=== PATIENT | female | born 2000 | race Caucasian/White ===

== ENCOUNTER 2018-05-22 09:21 | Emergency (ER) | payer OTHER ==
[2018-05-22] MEDS ORDERED: NS 1,000 ML IV (09:45)
[2018-05-22 10:13] LABS: BASO % 0.5 % (0.0-1.0); EOS % 0.4 % (0.0-3.0); HEMATOCRIT 38.5 % (36.0-47.0); HEMOGLOBIN 13.1 g/dl (12.0-15.5); LYMPH % 11.9 % (24.0-44.0); MEAN CORPUSCULAR HEMOGLOBIN 29.7 pg (27.0-33.0); MEAN CORPUSCULAR VOLUME 87.3 fl (80.0-96.0); MONO # 0.4 10^3/uL (0.0-0.8); MONO % 5.3 % (0.0-5.0); NEUTROPHILS # 6.7 10^3/uL (1.8-7.7); NEUTROPHILS % 80.9 % (36.0-66.0); PLATELET COUNT, AUTOMATED 236 10^3/uL (150-450); RED BLOOD COUNT 4.41 10^6/uL (4.00-5.40); RED CELL DISTRIBUTION WIDTH 13.6 % (11.5-14.5); WHITE BLOOD COUNT 8.3 10^3/uL (4.0-10.0)
[2018-05-22 10:24] LABS: INR 0.92; PROTHROMBIN TIME 12.5 SECONDS (12.1-14.4)
[2018-05-22 10:30] LABS: ALBUMIN 3.4 GM/DL (3.2-5.2); ALBUMIN/GLOBULIN RATIO 0.85 (1.00-1.93); ALKALINE PHOSPHATASE 43 U/L (45-117); ALT/SGPT 20 U/L (12-78); AMYLASE 67 U/L (25-115); ANION GAP 9 MEQ/L (8-16); AST/SGOT 15 U/L (7-37); BILIRUBIN,DIRECT 0.2 MG/DL (0.0-0.2); BILIRUBIN,TOTAL 0.7 MG/DL (0.2-1.0); BLOOD UREA NITROGEN 9 MG/DL (7-18); CALCIUM LEVEL 8.8 MG/DL (8.5-10.1); CARBON DIOXIDE LEVEL 22 MEQ/L (21-32); CHLORIDE LEVEL 108 MEQ/L (98-107); CREATININE FOR GFR 0.57 MG/DL (0.55-1.30); GLUCOSE, FASTING 81 MG/DL (70-100); LIPASE 121 U/L (73-393); POTASSIUM SERUM 3.6 MEQ/L (3.5-5.1); SODIUM LEVEL 139 MEQ/L (136-145); TOTAL PROTEIN 7.4 GM/DL (6.4-8.2)
== END 2018-05-22 13:17 | disposition home or self-care (01) ==
LOC: M ED 09:21
DX: O9A.212 Injury, poisoning and certain other consequences of external causes complicating pregnancy, second trimester (principal); S80.02XA Contusion of left knee, initial encounter; S30.1XXA Contusion of abdominal wall, initial encounter; V49.49XA Driver injured in collision with other motor vehicles in traffic accident, initial encounter; Y92.410 Unspecified street and highway as the place of occurrence of the external cause; Z3A.17 17 weeks gestation of pregnancy
CPT/HCPCS: 76705

== ENCOUNTER 2018-10-09 10:33 | Outpatient (CLI) | payer OTHER ==
[~2018-10-09] VITALS: Ht 154.9 cm; Wt 88.1 kg
[2018-10-09 11:10] VITALS: BP 120/69
[2018-10-09 11:44] VITALS: BP 100/56
[2018-10-09 11:53] LABS: HEMOGLOBIN 10.6 g/dl (12.0-15.5); MEAN CORPUSCULAR HEMOGLOBIN 26.8 pg (27.0-33.0); MEAN CORPUSCULAR HGB CONC 32.1 g/dl (32.0-36.5); MEAN CORPUSCULAR VOLUME 83.5 fl (80.0-96.0); PLATELET COUNT, AUTOMATED 244 10^3/uL (150-450); RED BLOOD COUNT 3.95 10^6/uL (4.00-5.40); WHITE BLOOD COUNT 8.6 10^3/uL (4.0-10.0)
--- NOTE | 2018-10-09 12:00 | IPNPDOC ---
Text Note Date of Service The patient was seen on 10/09/18. NOTE Jackie is a 18 yo at 37+1 weeks today who presented for an ECV due to breech presentation. I counseled her the OBGYN clinic on Friday. She reports feeling well and has no complaints. She denies any contractions, pelvic pain, bleeding, or leakage of fluid. She endorses excellent movement. has been uncomplicated. Vitals - VSS, afebrile, normotensive, nontachyardic General - AAOX3, laying in bed, NAD, pleasant and conversant Abdomen - Gravid, no fundal tenderness Extremities - No edema FHR tracing before procedure: Reactive with BL 135, moderate variability, 2 accels in 10 minutes so taken off monitor Bedside TAUS before procedure - fetus breech / transverse with head and back on maternal left. Posterior placenta. ELDON >10cm. Procedure: ECV Pre procedure dx: malpresentation post procedure dx: successful version of fetus to vertex IV started and saline locked before procedure. CBC obtained. Patient counseled on all risks and benefits of ECV. Written informed consent obtained, witnessed by nursing staff, and documented in the records. Patient then prepped for ECV. She was placed in the supine position. Gel was copiously applied to her entire abdomen. The head was palpated and confirmed in breech/transverse posit ion on US by Dr. Su. I then applied external pressure to the head in a downward motion following along the curve of the spine. With one attempt the fetus successfully verted to vertex position. Bedside TAUS confirmed head cephalic and in vertex position after the procedure. US confirmed FHR in the 140s after procedure. Post procedure NST: BL 140, moderate variability, +accels, no decels, Reactive NST and Cat I tracing. ECV successful. status reassuring both before and after the procedure. She will follow up with me in one week. Return to care sooner for bleeding, contractions, leakage of fluid, or decreased movement. All patient questions answered. DO MAYRA Rios CHRISTOPHER J. DO Oct 09, 2018 12:00
[2018-10-09 12:13] VITALS: BP 107/71
== END 2018-10-09 12:33 | disposition home or self-care (01) ==
LOC: M LDO 10:33
PROVIDERS: ATTEND Obstetrics & Gynecology
DX: O32.1XX0 Maternal care for breech presentation, not applicable or unspecified (principal); Z3A.37 37 weeks gestation of pregnancy
CPT/HCPCS: 59025; 59412; 76815; 85027; G0378; G0463

== ENCOUNTER 2018-11-05 14:25 | Inpatient (IN) | payer OTHER ==
[~2018-11-05] VITALS: Ht 154.9 cm; Wt 89.6 kg
[2018-11-05] VITALS (8 sets, daily range): BP systolic 97–138; BP diastolic 55–83
[2018-11-05] MEDS ORDERED: LACTATED RINGER'S 1000 ML IV STA (15:49)
--- NOTE | 2018-11-05 16:04 | HPEPDOC ---
Obstetrical History & Physical General Date of Admission Nov 05, 2018 at 14:25 History of Present Illness 18 y/o at 41+0 with uncompl'd preg. No LOF/reg ctx's/VB. Pos FM. Herev f or scheduled IOL. Information Provided By: Patient Care Care: Good Care Dating Final EDC by: LMP, 1st trimester (US) Past Medical History Past Obstetrical History : Past Obstetrical History: Primgravida Past Medical History Medical History denies Surgical History: Junction teeth Family History Significant Family History: No pertinent family hx Social History Marital Status: Family situation: Spouse/partner home Psychosocial History: No pertinent psych hx * Smoker: non-smoker Alcohol: Denies Drugs: denies Abuse Violence Screening Have you been hit/kicked/slapp: No Have you been sexually assault: No Imunizations Tdap status: current Influenza Status: current Allergies Coded Allergies: Cetirizine (Verified Allergy, Intermediate, HIVES, 10/09/18) Physical Examination Physical Examination GENERAL: Alert and oriented times three. ABDOMEN: Gravid and non-tender to touch. FETUS: Is vertex (VTX) by sterile vaginal examination (SVE), /-3/vtx ballotable EXTREMITIES: No edema. Vital Signs/I&O Vital Signs Date Time Temp Pulse Resp B/P (MAP) Pulse Ox O2 Delivery O2 Flow Rate FiO2 11/05/18 14:40 96.7 110 18 138/83 (101) Room Air Laboratory Data 24H LABS Laboratory Tests 2 11/05/18 14:38: Serology Scanned Report Hepatitis B Testing Pertinent Laboratoy Data Blood Type: A+ RBC Antibody Screen: Negative HIV: Negative Hepatitis B: Negative Hepatitis C: Unknown Rapid Plasma Reagin: Nonreactive Rubella: Immune Varicella: Immune Chlamydia/Gonorrhea: Negative Group B Streptococcus: Negative Quad Screen Test: Negative Cystic Fibrosis: Declined Anatomy Ultrasound Placenta Location: Posterior Normal Anatomy: Yes Placenta Previa: No Estimated Weight (grams): 144 (nl 3hr GTT) Assessment Variability: Moderate Accelerations: Positive Decelerations: None Tocometer Contractions: Yes Frequency: irregular Assessment/Plan Assessment IOL at 41 Plan Admit and orient. Corporate Executive Chef and consent. Diet: clears Group B Streptococcus (GBS) neg Labs and intravenous (IV) per unit protocol. Counseled on Pitocin and induction of labor (IOL). Lactated Ringers (LR): Bolus 1000 mL prior to epidural if desires, then at 125 mL/hr. Anticipate normal spontaneous delivery () C-S as appropriate. Sessions MD SESSIONS,MARTINEZ Multani MD Nov 05, 2018 16:03
[2018-11-05] MEDS: miSOPROStol 50 MCG 1/2 TAB (S0191) PO PRN ×2 (16:18→20:42)
[2018-11-05 16:43] LABS: HEMATOCRIT 34.4 % (36.0-47.0); HEMOGLOBIN 10.7 g/dl (12.0-15.5); MEAN CORPUSCULAR HEMOGLOBIN 25.7 pg (27.0-33.0); MEAN CORPUSCULAR HGB CONC 31.1 g/dl (32.0-36.5); MEAN CORPUSCULAR VOLUME 82.5 fl (80.0-96.0); PLATELET COUNT, AUTOMATED 282 10^3/uL (150-450); RED BLOOD COUNT 4.17 10^6/uL (4.00-5.40); WHITE BLOOD COUNT 8.1 10^3/uL (4.0-10.0)
[2018-11-05] MEDS: LR 1,000 ML IV SCH (20:01)
[2018-11-05] MEDS ORDERED: NALBUPHINE HCL 10 MG/ML AMP (J2300) IV ONE (22:15)
[2018-11-05] MEDS ORDERED: NALBUPHINE HCL 10 MG/ML AMP (J2300) IM ONE (22:15)
[2018-11-05] MEDS ORDERED: PROMETHAZINE INJ 25 MG/ML VIAL (J2550) IV ONE (22:30)
--- NOTE | 2018-11-05 23:04 | IPNPDOC ---
Text Note Date of Service The patient was seen on 11/05/18. NOTE S/P 2 DOSES CYTOTEC Pain increasing apropriately, just received Nubain/Phenergan FHT Cat 1, reg ctx's Cx /-3/vtx much better applied Doing well, cytotec working, cont with next dose if not too many ctx's Recheck ~0400 Sessions VS,Yolanda, I+O VS, Yolanda I+O Laboratory Tests 11/05/18 16:13 Red Blood Count 4.17, Mean Corpuscular Volume 82.5, Mean Corpuscular Hemoglobin 25.7 L, Mean Corpuscular Hemoglobin Concent 31.1 L, Red Cell Distribution Width 15.3 H Vital Signs Date Time Temp Pulse Resp B/P (MAP) Pulse Ox O2 Delivery O2 Flow Rate FiO2 11/05/18 20:46 100 18 110/62 (78) 11/05/18 19:12 98.7 11/05/18 18:41 Room Air SESSIONS,MARTINEZ Multani MD Nov 05, 2018 23:03
[2018-11-06] VITALS (67 sets, daily range): BP systolic 89–136; BP diastolic 51–78
[2018-11-06] MEDS: miSOPROStol 50 MCG 1/2 TAB (S0191) PO PRN (01:23)
[2018-11-06] MEDS: LR 1,000 ML IV SCH ×3 (03:48→12:03)
--- NOTE | 2018-11-06 05:42 | IPNPDOC ---
Text Note Date of Service The patient was seen on 11/06/18. NOTE Pain increasing with ctx's FHT reassuring, mostly minimal mik (Nub/Phen) but some mod mik and no decels Now s/p 3 doses cytotec Cx softer and thinned out and vtx better applied each check but still 1 cm Will give a second dose of Nubain and phenergan and place a Cook balloon 60 U/[address] Kaba at ~0730 Sessions VS,Yolanda, I+O VSYolanda I+O Laboratory Tests 11/05/18 16:13 Red Blood Count 4.17, Mean Corpuscular Volume 82.5, Mean Corpuscular Hemoglobin 25.7 L, Mean Corpuscular Hemoglobin Concent 31.1 L, Red Cell Distribution Width 15.3 H Vital Signs Date Time Temp Pulse Resp B/P (MAP) Pulse Ox O2 Delivery O2 Flow Rate FiO2 11/06/18 02:45 93 16 95/54 (68) 11/05/18 23:43 98.1 11/05/18 18:41 Room Air I&O- Last 24 Hours up to 6 AM 11/06/18 06:00 Intake Total 1000 ml Output Total 2600 ml Balance -1600 ml SESSIONS,MARTINEZ Multani MD Nov 06, 2018 05:42
[2018-11-06] MEDS ORDERED: NALBUPHINE HCL 10 MG/ML AMP (J2300) IV ONE (05:45)
[2018-11-06] MEDS ORDERED: PROMETHAZINE INJ 25 MG/ML VIAL (J2550) IV ONE (05:45)
[2018-11-06] MEDS ORDERED: NALBUPHINE HCL 10 MG/ML AMP (J2300) IM ONE (05:45)
[2018-11-06] MEDS ORDERED: LR 1,000 ML IV SCH (06:20)
[2018-11-06] MEDS ORDERED: OXYTOCIN DRIP 30 UNITS in APPROPRIATE DILUENT 1 EA IV SCH (06:30)
--- NOTE | 2018-11-06 08:22 | IPNPDOC ---
Text Note Date of Service The patient was seen on 11/06/18. NOTE Intrapartum Note Jackie is a 18yo with SIUP at 41w1d undergoing iol for LTG. She has received multiple doses of cytotec and cook cervical palomino catheter was placed around 6am. She has received 1 dose of IV Nubain/phenergan around midnight. She notes her pain is great at peak of contractions and she is desiring pain medication- she was hoping for epidural, but we discussed that epidural this soon, in latent labor rather than active, may increase her risk for . I recommended continue IV pain medication until we can get her into active labor which she is amenable to currently. Vitals wnl, afebrile Cat I FHRT with bl 135, +accels, -decels, mod mik [place]: ctx q3min Awaiting cook catheter to fall out Will continue to closely monitor Will begin low dose pitocin at noon if palomino bulb has not yet fallen out (to titrate up to 6mu and hold until palomino bulb comes out) prn IV Nubain/phenergan when Cat I FHRT Safe to proceed Dr. Love Kaba MD VS,Yolanda, I+O VS, Yolanda, I+O Laboratory Tests 11/05/18 16:13 Red Blood Count 4.17, Mean Corpuscular Volume 82.5, Mean Corpuscular Hemoglobin 25.7 L, Mean Corpuscular Hemoglobin Concent 31.1 L, Red Cell Distribution Width 15.3 H Vital Signs Date Time Temp Pulse Resp B/P (MAP) Pulse Ox O2 Delivery O2 Flow Rate FiO2 11/06/18 06:46 82 18 11/06/18 06:43 111/67 (82) 11/06/18 02:45 98.4 11/05/18 18:41 Room Air I&O- Last 24 Hours up to 6 AM 11/06/18 06:00 Intake Total 1000 ml Output Total 2600 ml Balance -1600 ml Love Kaba MD Nov 06, 2018 08:22
[2018-11-06] MEDS ORDERED: BUTORPHANOL 2 MG/ML INJ (J0595) IV PRN (08:30)
--- NOTE | 2018-11-06 17:02 | IPNPDOC ---
Text Note Date of Service The patient was seen on 11/06/18. NOTE Intrapartum Note Jackie is a 18yo with SIUP at 41w1d undergoing iol for LTG. Daley bulb recently came out. She is not feeling any contractions. Pitocin was started slowly, but turned off for minimal variability that resolved. Vitals wnl, afebrile Intermittent Cat I-II FHRT with +accels, -decels, but min-mod mik [place]: rare ctx Will plan to continue to titrate up on pitocin as tolerated by FHRT Patient is candidate for epidural as desired Safe to proceed Dr. oLve Kaab MD VS,Yolanda, I+O VS, Yolanda, I+O Vital Signs Date Time Temp Pulse Resp B/P (MAP) Pulse Ox O2 Delivery O2 Flow Rate FiO2 11/06/18 12:43 94 106/53 (70) 11/06/18 07:34 98.5 18 11/05/18 18:41 Room Air I&O- Last 24 Hours up to 6 AM 11/06/18 06:00 Intake Total 1000 ml Output Total 2600 ml Balance -1600 ml Love Kaba MD Nov 06, 2018 17:02
[2018-11-06] MEDS ORDERED: FENTANYL 2MCG/ML ROPIVACAINE 0.2% IN 0.9% NACL 100ML IVBAG As Ordered ONE (20:05)
[2018-11-06] MEDS ORDERED: FENTANYL/ROPIVACAINE/NACL BAG 100 ML EPIDURAL SCH (20:14)
[2018-11-06] MEDS ORDERED: REFRIGERATOR IV KEYS XX PRN (20:14)
[2018-11-06] MEDS ORDERED: EPIDURAL/PCA KEYS XX PRN (20:14)
[2018-11-06] MEDS ORDERED: ePHEDrine SULFATE 25 MG/5 ML(5MG/ML) SYRINGE IV PRN (20:14)
[2018-11-06] MEDS ORDERED: EPIDURAL COMMENT XX SCH (20:14)
[2018-11-06] MEDS ORDERED: NALOXONE INJ 0.4 MG/1 ML VIAL (J2310) IV PRN (20:14)
[2018-11-06] MEDS ORDERED: ONDANSETRON 4MG/2ML VIAL (J2405) IV PRN (20:14)
[2018-11-06] MEDS ORDERED: diphenhydrAMINE INJ 50MG/ML VIAL (J1200) IV PRN (20:14)
[2018-11-06] MEDS ORDERED: LACTATED RINGER'S 1000 ML IV PRN (20:14)
[2018-11-07] VITALS (58 sets, daily range): BP systolic 103–138; BP diastolic 51–77
--- NOTE | 2018-11-07 00:06 | IPNPDOC ---
Text Note Date of Service The patient was seen on 11/07/18. NOTE Intrapartum Note Pt comfortable with epidural. Pitocin at 6mu. Vitals wnl, afebrile SCE 5/50/-2, AROM performed with clear fluid noted Intermittent Cat I-II FHRT with min-mod mik, +accels, -decels [place]: ctx q2-5min Will continue to closely observe Will continue to titrate pitocin per protocol Plan to recheck in 4hr or earlier as indicated Safe to proceed Dr. Love Kaba MD VS,Yolanda, I+O VS, Yolanda, I+O Vital Signs Date Time Temp Pulse Resp B/P (MAP) Pulse Ox O2 Delivery O2 Flow Rate FiO2 11/06/18 12:43 94 106/53 (70) 11/06/18 07:34 98.5 18 11/05/18 18:41 Room Air Love Kaba MD Nov 07, 2018 00:06
[2018-11-07] MEDS: LR 1,000 ML IV SCH ×2 (08:18→18:42)
--- NOTE | 2018-11-07 08:57 | IPNPDOC ---
Text Note Date of Service The patient was seen on 11/07/18. NOTE [id number] @ 0848- Assumed care of patient at [address] Kaba. S: Pt resting in left tilt with epidural infusing. Reports she is comfortable, but feeling increased pressure. States she has been checked twice d/t feeling like she need to push. Both times found to be 9 cm. O: VS: WNL, afebrile FHR: 130, minimal to moderate variability, no accels, intermittent late CTX: Q 2-5 min, lasting < 90 sec, palpated as strong, resting tone palpated as soft EFW: 3600 grams Pitocin @ 6 mU/min SVE: Deferred Blood type: A positive GBS negative HIV negative HEP B non-reactive Varicella- immune Rubella- Immune RPR- non-reactive PMH- obesity PSH- wisdom teeth extraction PREG PROB LIST: 1. BMI-30(did not do early 1 hour GTT) 2. excessive wt gain of 41 lbs 3. Elevated 1 hour GTT, normal 3 hour GTT A: 18 yo G1 @ 42+2 s/p IOL for pending post-dates, 3 doses of cytotec with cook balloon, currently in active labor with pitocin, CAT I-II FHR tracing P: continue to monitor and assess, reassess in 2 hours or prn, continue to titrate pitocin per unit protocol. VS,Fishbone, I+O VS, Fishbone, I+O Vital Signs Date Time Temp Pulse Resp B/P (MAP) Pulse Ox O2 Delivery O2 Flow Rate FiO2 11/06/18 12:43 94 106/53 (70) 11/06/18 07:34 98.5 18 11/05/18 18:41 Room Air I&O- Last 24 Hours up to 6 AM 11/07/18 06:00 Intake Total 1875 ml Balance 1875 ml MARY JO BISHOP CNM Nov 07, 2018 08:57
[2018-11-07] MEDS: PRENATAL VITAMINS CHEWABLE TABLET PO SCH (09:00)
--- NOTE | 2018-11-07 10:29 | IPNPDOC ---
Text Note Date of Service The patient was seen on 11/07/18. NOTE [id number] @ 1012 S: Pt resting in right tilt with epidural infusing. Reports she is uncomfortable. Reports upper back pain. Spouse at bedside. O: VS: WNL, afebrile FHR: 135, minimal to moderate variability, no accels, no decels CTX: Q 2-4 min, lasting >90 seconds, MVUs >300 Pitocin @ 6 mU/min SVE: /-1, soft/vtx IUPC and FSE placed AROM: 00:00 [id number], fluid remains clear, AROM x 10 hours A: 18 yo G1 @ 42+2 s/p IOL for pending post-dates, 3 doses of cytotec with cook balloon, currently in active labor with pitocin, CAT I-II FHR tracing P: continue to monitor and assess, reassess in 2 hours or prn, Decrease pitocin but maintain adequate MVUs. Consulted with Dr. Husain. Plan to recheck @ 1200. If no change at that time PLTCS. If FHR becomes NRFHT/cat III plan for PLTCS prior to 1200. VS,Fishbone, I+O VS, Fishbone, I+O Vital Signs Date Time Temp Pulse Resp B/P (MAP) Pulse Ox O2 Delivery O2 Flow Rate FiO2 11/06/18 12:43 94 106/53 (70) 11/06/18 07:34 98.5 18 11/05/18 18:41 Room Air I&O- Last 24 Hours up to 6 AM 11/07/18 06:00 Intake Total 1875 ml Balance 1875 ml MARY JO BISHOP CNM Nov 07, 2018 10:29
--- NOTE | 2018-11-07 10:55 | IPNPDOC ---
Text Note Date of Service The patient was seen on 11/07/18. NOTE [id number] Pt moved in bed and IUPC pulled out, second IUPC placed. VS,Fishbone, I+O VS, Fishbone, I+O Vital Signs Date Time Temp Pulse Resp B/P (MAP) Pulse Ox O2 Delivery O2 Flow Rate FiO2 11/06/18 12:43 94 106/53 (70) 11/06/18 07:34 98.5 18 11/05/18 18:41 Room Air I&O- Last 24 Hours up to 6 AM 11/07/18 06:00 Intake Total 1875 ml Balance 1875 ml MARY JO BISHOP CNM Nov 07, 2018 10:55
--- NOTE | 2018-11-07 12:12 | IPNPDOC ---
Text Note Date of Service The patient was seen on 11/07/18. NOTE [id number] @ 1207 S: Pt resting in left tilt with epidural infusing. Reports she is feeling back and abdominal pain with CTXs. Spouse at bedside. Family at bedside upon arrival to room. Family left for exam. O: VS: WNL, afebrile FHR: 135, minimal to moderate variability, no accels, intermittent late decels CTX: Q 3-4 min, lasting <90 seconds, MVUs <100 Pitocin @ 7 mU/min SVE: /0, soft/vtx AROM: 00:00 [id number], fluid remains clear, AROM x 12 hours A: 18 yo G1 @ 42+2 s/p IOL for pending post-dates, 3 doses of cytotec with cook balloon, currently in active labor with pitocin, CAT I-II FHR tracing P: Stop pitocin. Plan for PLTCS. BOOGIE to Dr. Husain Consulted with Dr. Husain. Plan for PLTCS. VS,Fishbone, I+O VS, Fishbone, I+O Vital Signs Date Time Temp Pulse Resp B/P (MAP) Pulse Ox O2 Delivery O2 Flow Rate FiO2 11/07/18 11:35 81 114/63 (80) 11/06/18 07:34 98.5 18 11/05/18 18:41 Room Air I&O- Last 24 Hours up to 6 AM 11/07/18 06:00 Intake Total 1875 ml Balance 1875 ml MARY JO BISHOP CNM Nov 07, 2018 12:12
[2018-11-07] MEDS ORDERED: BICITRA 30ML SOLN UDC As Ordered ONE (12:30)
[2018-11-07] MEDS ORDERED: ceFAZolin 2 GM/D5W 50 ML IV BAG (J0690 PER 500MG) As Ordered ONE (12:30)
--- NOTE | 2018-11-07 12:33 | IPNPDOC ---
Text Note Date of Service The patient was seen on 11/07/18. NOTE Pt well known to me, I did her H&P 2 days ago. Progressed with cytotec, Cook balloon, AROM, pitocin to 9 cm, at which she stopped progressing since early this AM despite adeq MVU's on pitocin. IC for PCD obtained, OR team and anesthesia mobilized. Sessions VS,Yolanda, I+O VS, Yolanda, I+O Vital Signs Date Time Temp Pulse Resp B/P (MAP) Pulse Ox O2 Delivery O2 Flow Rate FiO2 11/07/18 11:35 81 114/63 (80) 11/06/18 07:34 98.5 18 11/05/18 18:41 Room Air I&O- Last 24 Hours up to 6 AM 11/07/18 06:00 Intake Total 1875 ml Balance 1875 ml ALFONSO,MARTINEZ Multani MD Nov 07, 2018 12:33
[2018-11-07] MEDS ORDERED: BICITRA 30ML SOLN UDC PO ONE (13:00)
[2018-11-07] MEDS ORDERED: OXYTOCIN INJ 10 UNITS/ML VIAL (J2590) As Ordered ONE (13:05)
[2018-11-07] MEDS ORDERED: LIDOCAINE 2% W/EPIN INJ 20ML **PRES FREE As Ordered ONE (13:05)
[2018-11-07] MEDS ORDERED: MORPHINE PRES-FREE INJ 10 MG/10 ML VIAL (J2274) As Ordered ONE (13:06)
[2018-11-07] MEDS ORDERED: NALOXONE INJ 0.4 MG/1 ML VIAL (J2310) IV PRN ×2 (13:08)
[2018-11-07] MEDS ORDERED: METOCLOPRAMIDE INJ 10MG/2ML VIAL (J2765) IV PRN (13:08)
[2018-11-07] MEDS ORDERED: NALBUPHINE HCL 10 MG/ML AMP (J2300) IV PRN (13:08)
[2018-11-07] MEDS ORDERED: ONDANSETRON 4MG/2ML VIAL (J2405) IV PRN ×3 (13:08→14:15)
[2018-11-07] MEDS ORDERED: diphenhydrAMINE INJ 50MG/ML VIAL (J1200) IV PRN (13:08)
[2018-11-07] MEDS ORDERED: fentaNYL 100 MCG/2 ML INJECTION (J3010) As Ordered ONE (13:13)
[2018-11-07] MEDS ORDERED: MIDAZOLAM INJ 2 MG/2 ML VIAL (J2250) As Ordered ONE (13:18)
[2018-11-07] MEDS ORDERED: LIDOCAINE PRES-FREE 2% 10ML AMP As Ordered ONE (13:25)
[2018-11-07] MEDS ORDERED: NORCO, ANEXSIA 5/325MG TABLET (HYDROcodone/ACETAMINOPHEN) PO PRN ×2 (14:00)
[2018-11-07] MEDS ORDERED: MEASLES,MUMPS,RUBELLA VACCINE INJ (MMR-II) (90707) SC SCH (14:00)
[2018-11-07] MEDS ORDERED: RHOGAM 300 MCG (1500 IU) INJ (J2790) IM SCH (14:00)
[2018-11-07] MEDS ORDERED: OXYTOCIN DRIP 30 UNITS in APPROPRIATE DILUENT 1 EA IV SCH ×4 (14:00)
[2018-11-07] MEDS ORDERED: PERCOCET 5MG/325MG TAB PO PRN (14:15)
[2018-11-07] MEDS ORDERED: LR 1,000 ML IV SCH (14:15)
[2018-11-07] MEDS ORDERED: fentaNYL 100 MCG/2 ML INJECTION (J3010) IV PRN (14:15)
[2018-11-07] MEDS ORDERED: METHYLERGONOVINE MALEATE 0.2 MG/ML VIAL (J2210) As Ordered ONE (14:26)
[2018-11-07] MEDS: KETOROLAC 30 MG/ML VIAL (J1885) IV SCH ×2 (16:27→21:47)
[2018-11-07] MEDS: DOCUSATE SODIUM 100 MG CAP PO SCH (20:38)
[2018-11-07] MEDS: METHYLERGONOVINE MALEATE 0.2 MG TAB PO SCH (20:38)
[2018-11-08] VITALS (7 sets, daily range): BP systolic 96–115; BP diastolic 55–59
[2018-11-08] MEDS: LR 1,000 ML IV SCH ×2 (00:45→08:45)
[2018-11-08] MEDS: KETOROLAC 30 MG/ML VIAL (J1885) IV SCH ×2 (02:33→08:50)
[2018-11-08] MEDS: METHYLERGONOVINE MALEATE 0.2 MG TAB PO SCH ×2 (02:33→08:49)
[2018-11-08 06:22] LABS: HEMATOCRIT 28.9 % (36.0-47.0); MEAN CORPUSCULAR HEMOGLOBIN 25.3 pg (27.0-33.0); MEAN CORPUSCULAR HGB CONC 31.1 g/dl (32.0-36.5); MEAN CORPUSCULAR VOLUME 81.2 fl (80.0-96.0); PLATELET COUNT, AUTOMATED 184 10^3/uL (150-450); RED BLOOD COUNT 3.56 10^6/uL (4.00-5.40); WHITE BLOOD COUNT 11.8 10^3/uL (4.0-10.0)
[2018-11-08] MEDS: DOCUSATE SODIUM 100 MG CAP PO SCH ×2 (08:49→21:39)
[2018-11-08] MEDS: PRENATAL VITAMINS CHEWABLE TABLET PO SCH (08:49)
--- NOTE | 2018-11-08 08:52 | IPNPDOC ---
Text Note Date of Service The patient was seen on 11/08/18. NOTE POD1 PCD for arrest dilation at 9 cm States feeling well, pain controlled with prescribed meds. Baby bonding and feeding well. No heavy VB. Lochia slowing. Ambulatory X1. Tolerating PO without issues. VSSAF NAD A&O RRR CTAB LE no C/C/E Ut at U-2, firm UO appropriate overnight CBC appropriate this AM a/p: Doing well. Cont routine postop care. D/C likely tomorrow. D/C Daley now, DTV in 6 hrs. Scheduled Motrin and PRN Percocet. Ambulate. Sessions MD MEJIAS,Yolanda, I+O VSYolanda I+O Laboratory Tests 11/08/18 06:06 Red Blood Count 3.56 L, Mean Corpuscular Volume 81.2, Mean Corpuscular Hemoglobin 25.3 L, Mean Corpuscular Hemoglobin Concent 31.1 L, Red Cell Distribution Width 15.8 H Vital Signs Date Time Temp Pulse Resp B/P (MAP) Pulse Ox O2 Delivery O2 Flow Rate FiO2 11/08/18 06:00 98.4 101 18 101/57 (72) 97 Room Air I&O- Last 24 Hours up to 6 AM 11/08/18 06:00 Intake Total 3625 ml Output Total 2100 ml Balance 1525 ml SESSIONS,MARTINEZ Multani MD Nov 08, 2018 08:52
[2018-11-08] MEDS: IBUPROFEN 800 MG TAB PO SCH (17:00)
[2018-11-09] MEDS: IBUPROFEN 800 MG TAB PO SCH ×2 (00:34→08:00)
[2018-11-09 05:40] VITALS: BP 99/56
--- NOTE | 2018-11-09 07:39 | IPNPDOC ---
Text Note Date of Service The patient was seen on 11/09/18. NOTE POD2 PCD for arrest dilation at 9 cm States feeling well, pain controlled with prescribed meds. Baby bonding and feeding well. No heavy VB. Lochia slowing. Ambulatory X1. Tolerating PO without issues. Voiding spont many times since palomino out yest AM. VSSAF NAD A&O RRR CTAB LE no C/C/E Ut at U-2, firm Bandage C/D/I a/p: Doing well. Cont routine postop care. D/C this AM. Sessions MD MEJIAS,Yolanda, I+O VSYolanda I+O Vital Signs Date Time Temp Pulse Resp B/P (MAP) Pulse Ox O2 Delivery O2 Flow Rate FiO2 11/09/18 05:40 98.5 91 17 99/56 (70) 11/08/18 22:00 100 Room Air I&O- Last 24 Hours up to 6 AM 11/09/18 05:59 Output Total 1000 ml Balance -1000 ml SESSIONS,MARTINEZ Multani MD Nov 09, 2018 07:39
--- NOTE | 2018-11-09 07:50 | DS.PDOC ---
Discharge Summary General Date of Admission Nov 05, 2018 at 14:25 Date of Discharge [id number] Discharge Summary ADMITTING DIAGNOSES: Induction pending postdates DISCHARGE DIAGNOSES: Same, Primary delivery HOSPITAL COURSE: Admitted and labor complicated by arrest of dilation after misoprostol, cook ballon, pitocin, AROM. Had an uncomplicated low-transverse . course uncomplicated. DISCHARGE MEDICATIONS: Motrin, Lanolin, Colace, Nor, Percocet DISCHARGE INSTRUCTIONS: Nothing in the vagina for 6 weeks. No driving for 2 weeks. No immersion of incision in dirty water for 4 weeks. F/U in OBGYN clinic 1-[address] Sessions and in 6-8 weeks. Sessions Vital Signs/I&Os Vital Signs Date Time Temp Pulse Resp B/P (MAP) Pulse Ox O2 Delivery O2 Flow Rate FiO2 11/09/18 05:40 98.5 91 17 99/56 (70) 11/08/18 22:00 100 Room Air I&O- Last 24 Hours up to 6 AM 11/09/18 06:00 Output Total 1000 ml Balance -1000 ml Allergies Coded Allergies: Cetirizine (Verified Allergy, Intermediate, HIVES, 10/09/18) SESSIONS,MARTINEZ Multani MD Nov 09, 2018 07:50
[2018-11-09] MEDS: DOCUSATE SODIUM 100 MG CAP PO SCH (08:00)
[2018-11-09] MEDS: PRENATAL VITAMINS CHEWABLE TABLET PO SCH (08:00)
[2018-11-09] MEDS ORDERED: COLA100C5 PO (11:06)
[2018-11-09] MEDS ORDERED: PRENTAB7 PO (11:06)
[2018-11-09] MEDS ORDERED: MOTR200T44 PO (11:06)
[2018-11-09] MEDS ORDERED: NORC1TAB4 PO (11:06)
--- NOTE | 2018-11-09 14:13 | RO ---
DATE OF PROCEDURE: 11/07/2018 DIAGNOSIS: Arrest of dilation at 9 cm. POSTOPERATIVE DIAGNOSIS: Arrest of dilation at 9 cm. SURGEON: Dr. Cesar Husain INTERNATIONAL MARKETING COORDINATOR: Maj. Milady Ram CNM ANESTHESIA: Epidural. ESTIMATED BLOOD LOSS: To 5 mL. DRAINS: Daley catheter, 175 mL in the catheter PREOPERATIVE ANTIBIOTICS: 2 grams Ancef IV. FLUIDS REPLACED: 900 mL of lactated Ringer's. SPECIMENS: None. INDICATION: The patient was 9 cm for approximately 6-7 hours despite adequate Sheldon units and Pitocin running with amniotomy and full internal. FINDINGS: Straight Occiput posterior, female, Apgars 8 and 8, 3640 grams, 8 pounds, 0 ounces. Infant's baby's name Nupur. 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 DESCRIPTION OF OPERATION: The patient taken to the operating room after informed consent was obtained and the team was mobilized. After a bolus, was found to be adequate with test and the patient was prepped and draped in normal sterile fashion. Pfannenstiel skin incision was carried down to the layer of the fascia, which was nicked in the midline, extended bilaterally. After extending the skin incision, the upper edge of the fascia was tented up with a Daina clamp and midline rectus muscles dissected off sharply. This was repeated inferiorly without difficulty. The rectus muscles were then in the midline. Peritoneum was grasped, elevated and entered sharply. With surgeon's digit then confirmed no intraperitoneal scar tissue. Bladder blade was placed, bladder flap was created and a low-transverse incision was then performed and stretched to adequacy and the was delivered through the incision with the head flexed and with significant fundal pressure by my child development assistant. was on good shape with a spontaneous cry and good tone. Cord was clamped times two and cut and cord blood was obtained. Placenta was delivered with fundal massage and traction on the cord. Pitocin IV bolus was started all. The uterus was exteriorized and wrapped in a warm sponge. Uterine cavity was cleared of all clots and debris times two without difficulty. The lower aspect of the uterine incision was grasped with ring forceps, elevated up and the incision was closed with a running suture of locked 0 Vicryl from left to right without difficulty. The incision was then further closed with a 0 Monocryl for imbrication. Hemostasis was noted at the end of the closure. Irrigation was performed behind the uterus. The uterus was returned to the abdomen. The colic gutters were cleared of all clots and debris. One final inspection of the incision showed hemostasis and the peritoneum was closed with spray inferior with a #3-0 Vicryl. Rectus bellies were confirmed to be hemostatic and the fascia was closed from left to right with a running 0 Vicryl. The subcutaneous tissue was copiously irrigated and made to be hemostatic and the space was reapproximated with #3-0 Vicryl. The skin was then closed with a running subcuticular #4-0 Monocryl from left to right. Optifoam dressing was placed over the incision and then with the patient's legs were frogged and a bimanual exam revealed firmly U-1 and hemostasis after a small amount of clot was expressed. Overall the procedure was uncomplicated and all counts were correct including sponge, needle and instruments. GEOFFREY
== END 2018-11-09 12:45 | disposition home or self-care (01) | DRG 773 ==
LOC: M LDI 14:25 → M OBS 11-07 15:46
PROVIDERS: ADMIT Obstetrics & Gynecology; ATTEND Obstetrics & Gynecology
PROC: 3E0P7GC Introduction of Other Therapeutic Substance into Female Reproductive, Via Natural or Artificial Opening (ICD-10-PCS; 2018-11-05)
PROC: 10907ZC Drainage of Amniotic Fluid, Therapeutic from Products of Conception, Via Natural or Artificial Opening (ICD-10-PCS; 2018-11-07)
PROC: 10D00Z1 Extraction of Products of Conception, Low, Open Approach (ICD-10-PCS; principal; 2018-11-07 12:41)
DX: O48.0 Post-term pregnancy (principal); Z3A.41 41 weeks gestation of pregnancy; O62.0 Primary inadequate contractions; Z37.0 Single live birth